=== PATIENT | female | born 1960 | race Two or more races ===

== ENCOUNTER 2020-03-19 11:45 | Inpatient (IN) | payer OTHER ==
[~2020-03-19] VITALS: Ht 144.8 cm; Wt 90.7 kg
[2020-03-19] MEDS ORDERED: ZYRTEC10 M3 PO (11:49)
[2020-03-19] MEDS ORDERED: FLONASE16 GM (11:50)
[2020-03-19] MEDS ORDERED: SYNTHROID200 MCG PO (11:50)
[2020-03-19] MEDS ORDERED: CRESTOR20 MG PO (11:51)
[2020-03-19] MEDS ORDERED: NABUMETONE750 MG PO (11:51)
[2020-03-19] MEDS ORDERED: NEURONTIN800 MG PO (11:51)
[2020-03-19] MEDS ORDERED: LORAZEPAM2 MG PO (11:52)
[2020-03-19] MEDS ORDERED: ANTIVERT PO (11:52)
[2020-03-23] MEDS ORDERED: PERCOCET 5-3251 EACH PO (12:22)
[2020-03-23] MEDS ORDERED: COLACE100 MG PO (12:23)
== END 2020-03-24 12:52 | disposition home or self-care (01) | DRG 472 ==
LOC: O/R 03-22 11:45 → SURH 03-22 11:45 → O/R 03-23 08:55 → SURH 03-23 11:45
PROVIDERS: ADMIT Orthopaedic Surgery Orthopaedic Surgery of the Spine; ATTEND Orthopaedic Surgery Orthopaedic Surgery of the Spine
PROC: 0RT30ZZ Resection of Cervical Vertebral Disc, Open Approach (ICD-10-PCS; 2020-03-23)
PROC: 0RG20A0 Fusion of 2 or more Cervical Vertebral Joints with Interbody Fusion Device, Anterior Approach, Anterior Column, Open Approach (ICD-10-PCS; principal; 2020-03-23 13:00)
DX: M48.02 Spinal stenosis, cervical region (principal); M50.022 Cervical disc disorder at C5-C6 level with myelopathy